=== PATIENT | male | born 1955 | race Two or more races ===

== ENCOUNTER → 2016-11-18 | Outpatient (CLI) | payer OTHER ==
[~2016-11-18] MED LIST: AMMONIUM LACTATE; DOCUSATE SODIU100 MG PO; FLUOXETINE HCL40 M1 PO; HYDROCODON-ACE1 EAC9 PO; NO MEDICATIONS; PRAVACHOL20 MG PO; PROZAC10 M1 PO; [UNRECOGNIZED DRUG - OTHER]; [UNRECOGNIZED DRUG - OTHER] PO
--- NOTE | ~2016-11-18 | EKG ---
PATIENT: GLADIS BILLINGSLEY UNIT #: [id number] Ventricular Rate: 60 BPM Atrial Rate: 60 BPM P-R Interval: 184 ms QRS Duration: 98 ms Q-T Interval: 430 ms QTC Calculation(Bezet): 430 ms P Browning: 47 degrees Calculated R Browning: -26 degrees Calculated T Browning: 9 degrees Diagnosis Line: Normal sinus rhythm Diagnosis Line: Minimal voltage criteria for LVH, may be normal Diagnosis Line: variant Diagnosis Line: Otherwise normal ECG Diagnosis Line: Diagnosis Line: Confirmed by PB KURTZ MD ([id number]) on 11/18/2016 Diagnosis Line: 11:06:43 PM INTERPRETING MD: JERARDO WEIR
[2016-11-18 14:42] LABS: HEMOGLOBIN 14.2 gm/dL (13.0-16.0); MEAN CELL VOLUME 93.5 FL (83-96); MEAN CORPUSCULAR HEMOGLOBIN 31.6 PG (28-34); MEAN CORPUSCULAR HGB CONC 33.8 g/dL (30-36); MEAN PLATELET VOLUME 8.5 FL (6.5-11.5); RED BLOOD COUNT 4.49 X10e (3.90-5.60); RED CELL DISTRIBUTION WIDTH 13.9 % (11.0-15.5); WHITE BLOOD COUNT 8.3 X10e3 (4.0-10.5)
[2016-11-18 15:13] LABS: CALCIUM SERUM 9.1 mg/dL (8.4-10.2); CREATININE SERUM 1.1 mg/dL (0.6-1.4); GLOM FILT RATE Estimated 71.6 mL/min (>60); POTASSIUM 4.4 mmol/L (3.5-5.1)
== END | disposition home or self-care (01) ==
LOC: CAMB 13:19
PROVIDERS: Urology
DX: Z01.818 Encounter for other preprocedural examination (principal); N28.89 Other specified disorders of kidney and ureter
CPT/HCPCS: 36415; 80048; 85027; 86850; 86860; 86870; 86880; 86885; 86900; 86901; 86905; 86970; 93005

== ENCOUNTER 2016-11-25 10:18 | Inpatient (IN) | payer OTHER ==
--- NOTE | ~2016-11-25 | CO ---
Unit #: [id number] #: [id number] Patient: ROBERTH BILLINGSLEY [id number] [address] [address] [id number] I MR#: [id number] NAME: ROBERTH BILLINGSLEY ROOM: 568 Age: 61 Sex: M Admission Date: 11/25/2016 : 1955 Attending Physician: Adi Linder M.D. Primary Care Physician: Caroline Reyes Aprn Requesting Physician: Adi Linder M.D. Consultation Date: 11/28/2016 CONSULTATION REPORT REASON FOR CONSULTATION Probable lymphoma, please evaluate. HISTORY OF PRESENT ILLNESS Mr. Roberth Mcdonnell is 61 years old with a history of chronic dermatitis with hyperkeratosis of his palms and soles, who was admitted to the hospital in August 14, 2016, with abdominal pain. A CT scan of the abdomen and pelvis revealed a mass arising from his right kidney, exophytic in the upper pole, measuring 2.3 x 2.9 x 2.4 cm. He has since had a right partial nephrectomy with pathology using a lymphoproliferative problem, possibly a follicular lymphoma leading to consultation. Mr. Kelly tells me he has had no changes in appetite or weight, no fevers. He has had some night sweats, primarily after his hospitalization. No itching. He has a history of chronic dermatitis affecting his hands and feet which was recently improved but no significant medical problems. PAST MEDICAL HISTORY Chronic dermatitis as mentioned. PAST SURGERIES 1. Knee surgery. 2. Partial nephrectomy. ALLERGIES Penicillin. FAMILY HISTORY Negative for cancer. SOCIAL HISTORY Used to drink alcohol (1) in the past but none recently. Smokes about a pack a day. He has had a lung screening CT scan which was negative. REVIEW OF SYSTEMS 14-point review of systems was done and information obtained by the help of his niece who is a fluent Latvian speaker. CONSTITUTIONAL: As discussed. EYES: Negative. EARS, NOSE, MOUTH AND THROAT: Negative. CARDIOVASCULAR: Negative. RESPIRATORY: Negative. GASTROINTESTINAL: Colon polyp. GENITOURINARY: Negative. Unit #: [id number] #: [id number] Patient: ROBERTH BILLINGSLEY NEUROLOGIC: Negative. ALLERGIC/LYMPHATIC: Negative. SKIN: Dermatosis of both hands as previously mentioned. PSYCHIATRIC: Negative. PHYSICAL EXAMINATION GENERAL: He is a pleasant, middle aged man, awake, alert, oriented x3. He is sitting up in a wheelchair. Awake, alert, oriented x3. VITAL SIGNS: Temperature is 98.3, pulse is 85, respiratory rate is 22, blood pressure is 139/88. O2 sats 94% on room air. HEENT: Pupils equal, react well to light. No pallor or icterus. Mucous membranes are moist. NECK: No JVD or thyromegaly. CARDIOVASCULAR SYSTEM: First and second heart sounds are heard without any murmurs, gallops, rubs. LUNGS: Chest expansion is symmetric, bilaterally clear. Normal breath sounds. ABDOMEN: Soft, nontender. (2) noted. No organomegaly. EXTREMITIES: Warm with good pulses. No edema, cyanosis or clubbing. NEUROLOGICAL: He is awake, alert, oriented x2 without any focal deficits. LYMPHATIC: No palpable lymph nodes. SKIN: Hyperkeratosis of both hands and soles of feet. DIAGNOSTIC STUDIES LABORATORY: CBC with white count of 8.4, hemoglobin 10.5, platelet count 149,000. Basic metabolic panel shows a BUN of 21, creatinine 1.7, eGFR is 42.3. Pathology was discussed with Dr. Royal of pathology and suspicious for a follicular lymphoma. ASSESSMENT AND PLAN Mr. Roberth Mcdonnell is 61 years old with a history of chronic dermatitis of his hands and feet with presence of abdominal pain in July 2016 with a right renal mass. After partial nephrectomy, the mass appears to be a lymphoma with final classification pending extradepartmental review with hemopathology. I discussed the situation with Mr. Kelly along with his niece and other family members. Will await a discharge home followed by a PET CT scan, final disease classification and likely bone marrow aspiration biopsy to be done as an outpatient following which additional recommendations. Thank you for letting me participate in his care. Dictated by.Genet. Byron Gilman M.D. ARETHA/perez TD: 11/28/2016 12:27 JOB #: [id number] Unit #: [id number] #: [id number] Patient: ROBERTH BILLINGSLEY CONSULTATION REPORT Page 1 of 1 X Byron Gilman MD CONSULTATION REPORT
--- NOTE | ~2016-11-25 | CO ---
Unit #: [id number] #: [id number] Patient: GLADIS BILLINGSLEY [id number] [address] [address] [id number] I MR#: [id number] NAME: GLADIS BILLINGSLEY ROOM: 568 Age: 61 Sex: M Admission Date: 11/25/2016 : 1955 Attending Physician: Adi Linder M.D. Primary Care Physician: Caroline Reyes Aprn Consultation Date: 11/26/2016 CONSULTATION REPORT REASON FOR CONSULTATION Critical care management. CHIEF COMPLAINT AND HISTORY OF PRESENT ILLNESS This patient basically is a 61-year-old male who has a past medical history of likely COPD, active smoker. Underwent a right-sided nephrectomy for right renal mass and is currently on Oxymizer. Denies any headache, blurry vision. No chest pain. No shortness of breath. REVIEW OF SYSTEMS Positive pallor. No edema. No cyanosis. No jaundice. The rest of a 12-point review of systems has been reviewed and is negative. PAST MEDICAL HISTORY 1. Likely COPD. 2. Status post nephrectomy. 3. History of knee surgery. ALLERGIES Penicillin. SOCIAL HISTORY Active smoker of 1 pack per day. Occasional alcohol use. MEDICATIONS As per OCT. Has been reviewed. PHYSICAL EXAMINATION VITAL SIGNS: Temperature 98, pulse 67, respirations 12, blood pressure 110/70. NEUROLOGIC: Awake, alert and oriented. No neuro deficits. HEENT: PERRLA. EOMI. NECK: Supple. No JVD. CHEST: Bilateral air entry. Bilateral mild rhonchi. GI: Nontender. Soft. Bowel sounds are positive. EXTREMITIES: No edema. SKIN: No rashes, no ulcer. LYMPHATIC: No lymphadenopathy. ASSESSMENT 1. Status post nephrectomy. 2. COPD. 3. Postop pain. 4. Hyperkalemia. Unit #: [id number] #: [id number] Patient: GLADIS BILLINGSLEY 5. Acute kidney injury. PLAN Continue oxygen. Continue bronchodilator. IV fluids as per nephrology. Follow pathology report. Smoking cessation. Patient will be closely monitored. Please see orders for detailed plan. Dictated by... Angelia Cantu M.D. Roby TD: 11/28/2016 13:17 JOB #: [id number] CONSULTATION REPORT Page 1 of 1 X Angelia Cantu MD CONSULTATION REPORT
--- NOTE | ~2016-11-25 | CR72 ---
[facility] A Service of [facility] & [facility] RADIOLOGY TEXT RESULTS PATIENT: GLADIS BILLINGSLEY LOCATION: [facility] [id number] : [birth year] UNIT #: [id number] AGE: [address]: Adi Linder MD SEX: M ORDER DR: [id number] [facility] [address] [place], [place] [address] [id number] I MR#: [id number] Acc #: [id number] NAME: GLADIS BILLINGSLEY : 1955 SEX: M STUDY DATE/TIME: 11/27/2016 14:02 UNIT: [facility] ROOM: [facility] STUDY DESCRIPTION: CR Chest Single View Portable Attending Physician: Adi Linder M.D. Ordering Physician: Angelia Cantu M.D. Primary Care Physician: Caroline Reyes Aprn MEDICAL IMAGING REPORT This report is preliminary unless electronic signature is present EXAM Portable chest INDICATIONS Shortness of breath today. COMPARISON Compared with 07/27/2015 FINDINGS There is low inspiratory volume with bibasilar atelectasis. Heart size within normal limits for technique. Degenerative changes of the AC joints. IMPRESSION There is low inspiratory volume with bibasilar atelectasis Dictated by... Tyler Hammond M.D. THIS IS AN ELECTRONICALLY VERIFIED REPORT Tyler Hammond M.D. at 11/28/2016 8:58 AM JEFFREY/meera TD: 11/27/2016 15:39 JOB #: [id number] MEDICAL IMAGING REPORT Page 1 of 1 COPY
--- NOTE | ~2016-11-25 | OR ---
Unit #: [id number] #: [id number] Patient: GLADIS BILLINGSLEY [id number] [address] [address] [id number] I MR#: [id number] NAME: GLADIS BILLINGSLEY ROOM: Date of Procedure: 11/25/2016 Admission Date: 11/25/2016 Surgeon: Adi Linder M.D. : 1955 [employer]her(s): Cordelia Palacio CFA Attending Physician: Adi Linder M.D. Primary Care Physician: Caroline Reyes, Emil PROCEDURE OPERATIVE NOTE PREOPERATIVE DIAGNOSIS Right renal mass. POSTOPERATIVE DIAGNOSIS Right renal mass. PROCEDURE PERFORMED Right open partial nephrectomy. SURGEON Adi Linder M.D. NO EXPERIENCE Cordelia Palacio CFA. ANESTHESIA General. INDICATIONS FOR PROCEDURE Mr. Robin Mcdonnell is a pleasant 61-year-old male who incidentally discovered right upper pole renal mass which is enhancing. The risks, benefits and alternatives including bleeding, infection, damage to adjacent structures, need for further surgery, need for radical nephrectomy, urine leak, the possibility this does not represent malignancy, failure to cure, PE, CVA, OK and were all discussed with the patient. Informed consent was obtained. He wished to proceed. DESCRIPTION OF PROCEDURE The patient was taken to the operative suite and properly identified. After the application of satisfactory general anesthetic, the patient was placed in a supine position with his right flank bumped. His abdomen and flank were prepped and draped in the usual sterile fashion. I made a right subcostal incision. Bovie electrocauterization was used to carry this down through the fascial layers. The fascia was opened and then the peritoneum was sharply opened. A Bookwalter self-retaining retractor was placed. He had some adhesions along the liver which were first taken down. We then mobilized the right colon along the white line of Toldt. We identified the ureter, encircled this with vessel loops. We performed a Karol maneuver, mobilizing the duodenum and exposing the inferior vena cava. Bowels were retracted medially and the liver was retracted superiorly. We identified the renal hilum and dissected this free. We released the attachments of the adrenal gland to the upper pole of the Unit #: [id number] #: [id number] Patient: GLADIS BILLINGSLEY kidney and we completely mobilized the upper pole, the lateral portion and the lower pole of the kidney. At this point we opened Gerota fascia. We identified the mass on the right upper pole lateral portion of the kidney. The Mannitol was infused. The kidney was crossclamped. We excised the mass using Metzenbaum scissors. Despite the kidney being crossclamped there was some arterial bleeding from the resection area. This was controlled with 3-0 Vicryl interrupted [id number] sutures. I then placed 0 Vicryl horizontal mattress sutures deep to the incision. I then also buttressed it with 0 Vicryl interrupted sutures over cigarettes with Surgicel. Hemostasis was achieved. I used the argon on the edge of the kidney. The kidney was unclamped. Crossclamp time was approximately 30 minutes. It was iced for 10 minutes after crossclamping. I inspected the kidney for approximately 10 minutes after removing the crossclamp and there was no active bleeding. FloSeal was placed in the operative bed. The abdomen was inspected. There was no evidence of intraabdominal injury. We removed the Bookwalter. We turned our attention of closing. We placed a 10 mm flat CESAR drain out of the right lateral inferior portion of the incision. The fascia was closed in two layers. The deep layer was closed with a #1 Vicryl running suture. The superficial layer was closed with #1 Vicryl interrupted [id number] sutures. The wound was copiously irrigated. The skin was closed with quinn. The patient tolerated the procedure well without complications. Estimated blood loss was 1000 mL. He received one unit of blood and was receiving the second unit of blood at the time of dictation. He is stable with systolic blood pressures in the 120s at this point. He will be monitored closely in the recovery room and in the ICU as well. Dictated by... Adi Linder M.D. CHRISTEN/nia TD: 11/25/2016 17:10 JOB #: [id number] PROCEDURE OPERATIVE NOTE Page 1 of 1 X Adi Linder MD X PROCEDURE OPERATIVE NOTE
--- NOTE | ~2016-11-25 | DS ---
Unit #: [id number] #: [id number] Patient: GLADIS BILLINGSLEY [id number] [address] [place], [place] [address] [id number] I MR#: [id number] NAME: GLADIS BILLINGSLEY ROOM: 568 Age: 61 Sex: M Admission Date: 11/25/2016 : 1955 Discharge Date: 11/29/2016 Attending Physician: Adi Linder M.D. Primary Care Physician: Caroline Reyes, Sales Representative [employer] DISCHARGE SUMMARY PRIMARY DIAGNOSIS Left renal mass consistent with lymphoma. OTHER DIAGNOSIS Postoperative renal insufficiency. DISPOSITION Home. FOLLOWUP 1. Followup with Dr. Linder in 10 days for staple removal. 2. PET scan next Friday outpatient through Dr. Gilman's office. 3. Nephrology followup pending. DISCHARGE MEDICATIONS Same as admission medications plus: 1. Colace one twice daily for two weeks. 2. Hixson 7.5/325 #30 one to two every six hours as needed. Note: Admission medications include: 1. Fluoxetine. 2. Bio Electro propionate cream and ammonium lactate topically. HISTORY The patient in July was admitted with abdominal pain and hematochezia and at that time was noted to have an enhancing right renal mass. He presents for elective right partial nephrectomy by Dr. Linder. HOSPITAL COURSE The patient was taken to the operating room the day of surgery and the above procedure performed. Postoperatively, his recovery was notable early for an elevated potassium which triggered a nephrology consult and easily responded to Kayexalate. His creatinine is stable at 1.6 at time of discharge. He had difficulty cooperating with self-administered analgesia initially and had atelectasis which responded to aggressive pain control, ambulation, and incentive spirometry. He also had a drop in the hemoglobin on postoperative day two to 10, but this was thought largely dilutional and it remained stable with a discharge hemoglobin of 10.8. He had minimal Chris-Marquez drainage. When pathology returned consistent with lymphoma invasive of renal parenchyma, surgical margins, and perinephric fat, Dr. Gilman of oncology was consulted. On the morning of the day of discharge, the patient is eating, ambulating, passing gas with less pain and voiding well. His Chris-Marquez drain is removed. Discharge anticipated pending Dr. Vaughn nephrology visit. Unit #: [id number] #: [id number] Patient: GLADIS BILLINGSLEY Dictated by... Sebastian Saucedo/candace TD: 11/29/2016 09:50 JOB #: [id number] CC: Sebastian Medrano M.D. W. Andre Duff, M.D. Ann Christy Elliot-Gonzalez, Emil DISCHARGE SUMMARY Page 1 of 1 X Andrea Maguire MD X DISCHARGE SUMMARY
--- NOTE | ~2016-11-25 | CO ---
Unit #: [id number] #: [id number] Patient: GLADIS BILLINGSLEY [id number] [address] [place], [place] [address] [id number] I MR#: [id number] NAME: GLADIS BILLINGSLEY ROOM: CIC2 Age: 61 Sex: M Admission Date: 11/25/2016 : 1955 Attending Physician: Adi Linder M.D. Primary Care Physician: Caroline Reyes Aprn Consultation Date: 11/26/2016 CONSULTATION REPORT REASON FOR CONSULTATION Renal insufficiency and hyperkalemia. HISTORY OF PRESENT ILLNESS Thank you very much for having me see this patient in consultation. This gentleman is a 61-year-old gentleman who does not speak [place], who presented to the hospital after being found in July of 2016 to have a right renal mass. He underwent a right partial nephrectomy yesterday. Patient was noted preoperatively to have a potassium of 4.2, a BUN of 19, creatinine of 1.0 and this morning his creatinine was up to 1.4 with potassium of 5.6. Because of this I was asked to see the patient. Patient was given Kayexalate and IV calcium. Patient currently is alert. He is complaining mainly of some pain in his right side. He is not having any chest pain, shortness of breath, nausea or vomiting currently. PAST MEDICAL HISTORY 1. History of status post knee surgery. 2. History, of course, of open partial nephrectomy yesterday on the right. ALLERGIES Include penicillin. SOCIAL HISTORY Socially occasional alcohol, positive smoker. REVIEW OF SYSTEMS Apparently no headaches, dizziness, visual problems, no cough, no neck pain, no chest pain, no shortness of breath. He is having abdominal pain. No significant swelling. No recent seizures or strokes. CURRENT MEDICATIONS His medicines currently include IV Pepcid, naloxone, morphine, Zofran, Prozac and Levaquin. PHYSICAL EXAMINATION GENERAL: He is alert. VITAL SIGNS: Temperature is 98.3, pulse 69 to 85, blood pressure 113 to 148 over 62 to 100. His output was recorded at 645 since surgery although he does have a Watts in and he appears to have some good urine in the bag at this point. HEENT: His HEENT is normocephalic and atraumatic. Pupils are equal, round and reactive to light. Extraocular muscles are intact. Hearing Unit #: [id number] #: [id number] Patient: GLADIS BILLINGSLEY appears to be normal. Mouth is clear, no erythema, no exudate. NECK: Supple, no adenopathy. CARDIAC: Regular rate and rhythm, without a rub, no S3 or S4. LUNGS: Clear bilaterally. No wheezes, rhonchi or rales. ABDOMEN: Bowel sounds are positive. He has a drain in his right side. Mild tenderness. The wounds are bandaged. EXTREMITIES: He has no lower extremity swelling. His pulses are intact in upper and lower extremities. JOINTS: No joint pain or joint swelling. SKIN: No rash. NEUROLOGIC: Appears intact motor and sensory grossly. GENITOURINARY: Has a Watts catheter in place. DIAGNOSTIC STUDIES LABORATORY: Data shows sodium of 138, potassium 5.6, chloride is 108, bicarb is 22, BUN and creatinine 22 and 1.4, with a glucose of 133, calcium is 7.9, hemoglobin is 14.3 and white count 15,800 and magnesium is 2, platelets 180,000. ASSESSMENT AND PLAN 1. Hyperkalemia: Patient with an increased potassium most likely related to surgery, mild acidosis, etc. Certainly will recheck a STAT BMP now and if it continues to be elevated will treat medically. 2. Renal insufficiency: Patient with acute increase in creatinine, a questionable decreased output. Agree with IV fluids for now. Will check UA, culture and sensitivity, urine eosinophils, random urine sodium. Depending on how his renal function does and his output does pending further workup and treatment. Certainly will avoid nonsteroidals, SALDIVAR-2 inhibitors, PPIs and other nephrotoxins if possible. 3. Status post open partial right nephrectomy on 11/25/16. Dictated by..Genet Vaughn M.D. SLY/nia TD: 11/26/2016 17:04 JOB #: [id number] CONSULTATION REPORT Page 1 of 1 X Azul Vaughn MD X CONSULTATION REPORT
[~2016-11-25 10:18] MED LIST changes: -DOCUSATE SODIU100 MG PO; -FLUOXETINE HCL40 M1 PO; -HYDROCODON-ACE1 EAC9 PO; -[UNRECOGNIZED DRUG - OTHER] PO
[2016-11-25] MEDS ORDERED: FLUOXETINE HCL40 M1 PO (10:45)
[2016-11-25] MEDS ORDERED: [UNRECOGNIZED DRUG - OTHER] PO (10:50)
[2016-11-25 13:12] LABS: ALBUMIN SERUM 3.8 g/dL (3.5-5.0); BILIRUBIN,TOTAL 0.7 mg/dL (0.2-2.0); CALCIUM SERUM 8.8 mg/dL (8.4-10.2); GLOM FILT RATE Estimated 80.3 mL/min (>60); POTASSIUM 4.2 mmol/L (3.5-5.1); PROTEIN TOTAL SERUM 7.3 g/dL (6.0-8.3)
[2016-11-25 17:31] LABS: BASOPHIL% 0.1 % (0-2.5); EOSINOPHIL# 0.5 X10e3 (0-0.7); EOSINOPHIL% 1.9 % (0.0-7.0); HEMATOCRIT 45.2 % (38.0-50.0); HEMOGLOBIN 14.6 gm/dL (13.0-16.0); LYMPHOCYTE# 2.7 X10e3 (1.0-3.5); LYMPHOCYTE% 10.3 % (17.0-45.0); MEAN CELL VOLUME 94.1 FL (83-96); MEAN CORPUSCULAR HEMOGLOBIN 30.3 PG (28-34); MEAN CORPUSCULAR HGB CONC 32.2 g/dL (30-36); MEAN PLATELET VOLUME 8.1 FL (6.5-11.5); MONOCYTE% 3.7 % (3.0-12.0); NEUTROPHIL# 21.8 X10e3 (1.5-7.1); PLATELET COUNT 191 X10e3 (140-420); RED CELL DISTRIBUTION WIDTH 14.1 % (11.0-15.5); WHITE BLOOD COUNT 25.9 X10e3 (4.0-10.5)
[2016-11-25 17:32] LABS: DIFF IND YES
[2016-11-25 17:53] LABS: CALCIUM SERUM 7.5 mg/dL (8.4-10.2); GLOM FILT RATE Estimated 80.3 mL/min (>60); MAGNESIUM 1.7 mg/dL (1.6-3.0)
[2016-11-25 18:06] LABS: BURR CELLS PRESENT; PLATELET ESTIMATE NORMAL (NORMAL)
[2016-11-25 21:09] LABS: EOSINOPHIL% 0.2 % (0.0-7.0); HEMATOCRIT 42.6 % (38.0-50.0); HEMOGLOBIN 14.2 gm/dL (13.0-16.0); LYMPHOCYTE# 1.3 X10e3 (1.0-3.5); LYMPHOCYTE% 5.4 % (17.0-45.0); MEAN CELL VOLUME 93.2 FL (83-96); MEAN CORPUSCULAR HGB CONC 33.3 g/dL (30-36); MEAN PLATELET VOLUME 8.2 FL (6.5-11.5); MONOCYTE# 1.1 X10e3 (0-1.0); MONOCYTE% 4.6 % (3.0-12.0); NEUTROPHIL# 21.4 X10e3 (1.5-7.1); NEUTROPHIL% 89.8 % (40-75); PLATELET COUNT 184 X10e3 (140-420); RED BLOOD COUNT 4.57 X10e (3.90-5.60); RED CELL DISTRIBUTION WIDTH 14.5 % (11.0-15.5); WHITE BLOOD COUNT 23.9 X10e3 (4.0-10.5)
[2016-11-25 21:10] LABS: DIFF IND NO
[2016-11-26 02:50] LABS: EOSINOPHIL% 0.1 % (0.0-7.0); HEMATOCRIT 43.2 % (38.0-50.0); HEMOGLOBIN 14.3 gm/dL (13.0-16.0); LYMPHOCYTE% 6.4 % (17.0-45.0); MEAN CELL VOLUME 93.7 FL (83-96); MEAN CORPUSCULAR HGB CONC 33.1 g/dL (30-36); MEAN PLATELET VOLUME 8.4 FL (6.5-11.5); MONOCYTE# 0.9 X10e3 (0-1.0); NEUTROPHIL# 13.8 X10e3 (1.5-7.1); NEUTROPHIL% 87.5 % (40-75); PLATELET COUNT 180 X10e3 (140-420); RED BLOOD COUNT 4.61 X10e (3.90-5.60); RED CELL DISTRIBUTION WIDTH 14.3 % (11.0-15.5); WHITE BLOOD COUNT 15.8 X10e3 (4.0-10.5)
[2016-11-26 02:51] LABS: DIFF IND NO
[2016-11-26 03:14] LABS: BUN/CREATININE RATIO 15.71; CALCIUM SERUM 7.9 mg/dL (8.4-10.2); CREATININE SERUM 1.4 mg/dL (0.6-1.4); GLOM FILT RATE Estimated 53.5 mL/min (>60)
[2016-11-26 03:16] LABS: POTASSIUM 5.6 mmol/L (3.5-5.1)
[2016-11-26 09:54] LABS: URINE APPEARANCE CLEAR; URINE BILIRUBIN NEG (NEG); URINE BLOOD 3+ (NEG); URINE COLOR YELLOW; URINE GLUCOSE NEG (NEG); URINE KETONE NEG (NEG); URINE LEUKOCYTE ESTERASE NEG (NEG); URINE NITRATE NEG (NEG); URINE PH 5.5 (5-8); URINE PROTEIN 1+ (NEG); URINE SPECIFIC GRAVITY 1.021 (1.003-1.035)
[2016-11-26 09:56] LABS: URBCS1 AUWI INNUM /[HPF] (0-2); URINE BACTERIA AUWI NEG (NEGATIVE); URINE SQUAMOUS EPITHELIAL CELL OCC /[HPF]
[2016-11-26 10:42] LABS: BUN/CREATININE RATIO 16.42; CALCIUM SERUM 7.9 mg/dL (8.4-10.2); CREATININE SERUM 1.4 mg/dL (0.6-1.4); GLOM FILT RATE Estimated 53.5 mL/min (>60); POTASSIUM 4.6 mmol/L (3.5-5.1)
[2016-11-27 07:19] LABS: ALBUMIN SERUM 2.6 g/dL (3.5-5.0); BILIRUBIN,TOTAL 0.8 mg/dL (0.2-2.0); BUN/CREATININE RATIO 12.66; CALCIUM SERUM 7.6 mg/dL (8.4-10.2); CREATININE SERUM 1.5 mg/dL (0.6-1.4); GLOM FILT RATE Estimated 49.2 mL/min (>60); MAGNESIUM 1.6 mg/dL (1.6-3.0); PHOSPHOROUS 2.6 mg/dL (2.5-4.6); PROTEIN TOTAL SERUM 4.8 g/dL (6.0-8.3)
[2016-11-27 07:32] LABS: BASOPHIL% 0.1 % (0-2.5); EOSINOPHIL# 0.4 X10e3 (0-0.7); EOSINOPHIL% 4.2 % (0.0-7.0); HEMATOCRIT 31.7 % (38.0-50.0); LYMPHOCYTE# 1.2 X10e3 (1.0-3.5); LYMPHOCYTE% 14.1 % (17.0-45.0); MEAN CORPUSCULAR HEMOGLOBIN 33.2 PG (28-34); MEAN CORPUSCULAR HGB CONC 34.2 g/dL (30-36); MEAN PLATELET VOLUME 8.7 FL (6.5-11.5); MONOCYTE# 0.6 X10e3 (0-1.0); MONOCYTE% 7.2 % (3.0-12.0); NEUTROPHIL# 6.5 X10e3 (1.5-7.1); NEUTROPHIL% 74.4 % (40-75); PLATELET COUNT 134 X10e3 (140-420); RED BLOOD COUNT 3.26 X10e (3.90-5.60); RED CELL DISTRIBUTION WIDTH 14.2 % (11.0-15.5); WHITE BLOOD COUNT 8.8 X10e3 (4.0-10.5)
[2016-11-27 07:40] LABS: HEMOGLOBIN 10.8 gm/dL (13.0-16.0)
[2016-11-27 07:41] LABS: DIFF IND NO
[2016-11-27 11:13] LABS: HEMATOCRIT 32.5 % (38.0-50.0)
[2016-11-27 17:10] LABS: HEMATOCRIT 31.7 % (38.0-50.0); HEMOGLOBIN 10.6 gm/dL (13.0-16.0)
[2016-11-28 06:13] LABS: HEMATOCRIT 30.8 % (38.0-50.0); HEMOGLOBIN 10.5 gm/dL (13.0-16.0); MEAN CORPUSCULAR HEMOGLOBIN 31.5 PG (28-34); MEAN CORPUSCULAR HGB CONC 34.3 g/dL (30-36); RED BLOOD COUNT 3.35 X10e (3.90-5.60); RED CELL DISTRIBUTION WIDTH 13.9 % (11.0-15.5); WHITE BLOOD COUNT 8.4 X10e3 (4.0-10.5)
[2016-11-28 06:37] LABS: MEAN CELL VOLUME 91.9 FL (83-96)
[2016-11-28 06:39] LABS: BUN/CREATININE RATIO 12.35; CALCIUM SERUM 7.7 mg/dL (8.4-10.2); CREATININE SERUM 1.7 mg/dL (0.6-1.4); GLOM FILT RATE Estimated 42.3 mL/min (>60); MAGNESIUM 2.1 mg/dL (1.6-3.0); PHOSPHOROUS 3.6 mg/dL (2.5-4.6); POTASSIUM 3.5 mmol/L (3.5-5.1)
[2016-11-29 05:56] LABS: HEMATOCRIT 32.3 % (38.0-50.0); HEMOGLOBIN 10.8 gm/dL (13.0-16.0); MEAN CELL VOLUME 94.4 FL (83-96); MEAN CORPUSCULAR HEMOGLOBIN 31.7 PG (28-34); MEAN CORPUSCULAR HGB CONC 33.5 g/dL (30-36); MEAN PLATELET VOLUME 8.9 FL (6.5-11.5); RED BLOOD COUNT 3.42 X10e (3.90-5.60); RED CELL DISTRIBUTION WIDTH 13.6 % (11.0-15.5); WHITE BLOOD COUNT 7.3 X10e3 (4.0-10.5)
[2016-11-29 06:34] LABS: BUN/CREATININE RATIO 11.87; CALCIUM SERUM 8.2 mg/dL (8.4-10.2); CREATININE SERUM 1.6 mg/dL (0.6-1.4); GLOM FILT RATE Estimated 45.5 mL/min (>60); POTASSIUM 3.7 mmol/L (3.5-5.1)
[2016-11-29] MEDS ORDERED: HYDROCODON-ACE1 EAC9 PO (17:26)
[2016-11-29] MEDS ORDERED: DOCUSATE SODIU100 MG PO (17:26)
[2016-12-18] MEDS ORDERED: NO MEDICATIONS (06:59)
== END 2016-11-29 18:23 | disposition home or self-care (01) | DRG 820 ==
LOC: CSUR 10:18 → CPACUOF 16:50 → CICCU2 20:03 → C5C 11-26 20:01
PROVIDERS: Internal Medicine Nephrology; Urology
PROC: 04Q Lower Arteries, Repair (ICD-10-PCS; 2016-11-25)
PROC: 30233N1 Transfusion of Nonautologous Red Blood Cells into Peripheral Vein, Percutaneous Approach (ICD-10-PCS; 2016-11-25)
PROC: 0TB00ZZ Excision of Right Kidney, Open Approach (ICD-10-PCS; principal; 2016-11-25 13:30)
DX: C85.89 Other specified types of non-Hodgkin lymphoma, extranodal and solid organ sites (principal); N17.0 Acute kidney failure with tubular necrosis; J98.11 Atelectasis; K21.9 Gastro-esophageal reflux disease without esophagitis; J44.9 Chronic obstructive pulmonary disease, unspecified; F17.210 Nicotine dependence, cigarettes, uncomplicated; Z88.0 Allergy status to penicillin; E87.5 Hyperkalemia
CPT/HCPCS: 71010; 80048; 80053; 81003; 82947; 83735; 84100; 84300; 85014; 85018; 85025; 85027; 86850; 86900; 86901; 86922; 87086; 88305; 88307; 88331; 89190; 94010; 94640; 94664; 94760; 97110; 97116; 97161; 97535; J0330; J0610; J0885; J1650; J1885; J1940; J1956; J2150; J2270; J2370; J2405; J2710; J3010; J3475; P9016

== ENCOUNTER 2016-12-16 10:13 | Emergency (ER) | payer OTHER ==
[~2016-12-16 10:13] MED LIST changes: +DOCUSATE SODIU100 MG PO; +FLUOXETINE HCL40 M1 PO; +HYDROCODON-ACE1 EAC9 PO; +[UNRECOGNIZED DRUG - OTHER] PO
[2016-12-18] MEDS ORDERED: NO MEDICATIONS (06:59)
== END 2016-12-16 10:20 | disposition home or self-care (01) ==
LOC: CED 10:13
DX: Z48.01 Encounter for change or removal of surgical wound dressing (principal); Z88.0 Allergy status to penicillin; F17.200 Nicotine dependence, unspecified, uncomplicated
CPT/HCPCS: 99281

== ENCOUNTER → 2016-12-18 | Outpatient (CLI) | payer OTHER ==
--- NOTE | ~2016-12-18 | XA51 ---
[facility] A Service of [facility] RADIOLOGY TEXT RESULTS PATIENT: GLADIS BILLINGSLEY LOCATION: [facility] : 53 UNIT #: [id number] AGE: [address]: Byron Gilman MD SEX: M ORDER DR: [id number] [address] [address] [id number] MR#: [id number] Acc #: [id number] NAME: GLADIS BILLINGSLEY : 1955 SEX: M STUDY DATE/TIME: 12/18/2016 7:42 UNIT: [facility] ROOM: STUDY DESCRIPTION: XA BX Bone Marrow Attending Physician: Byron Gilman M.D. Ordering Physician: Byron Gilman M.D. Primary Care Physician: Primary Care Physician No MEDICAL IMAGING REPORT This report is preliminary unless electronic signature is present EXAM Bone marrow aspiration and biopsy HISTORY Renal cell carcinoma. Lymphoma. Anemia. TECHNIQUE The procedure was explained to the patient including risks, benefits and complications. A business administration professor was used. The procedure was performed with conscious sedation with the patient lying prone under fluoroscopic guidance. Using sterile technique and following local anesthesia with 1% Xylocaine, a bone biopsy needle was placed in the right iliac crest under fluoroscopic guidance. Bone marrow aspiration was then performed with the aspirate deposited in 4 appropriately labeled and colored test tubes. Following this, a core biopsy was obtained. The patient tolerated the procedure well. Total fluoroscopy time 0.5 minutes with a total dose of 15 mGy. IMPRESSION Successful bone marrow aspiration and biopsy with conscious sedation and fluoroscopic guidance. Dictated by... Andrea Duncan M.D. THIS IS AN ELECTRONICALLY VERIFIED REPORT Andrea Duncan M.D. at 12/18/2016 4:44 PM RALPH/tom TD: 12/18/2016 12:04 [facility] A Service of [facility] RADIOLOGY TEXT RESULTS PATIENT: GLADIS BILLINGSLEY LOCATION: [facility] : 53 UNIT #: [id number] AGE: [address]: Byron Gilman MD SEX: M ORDER DR: JOB #: [id number] MEDICAL IMAGING REPORT Page 1 of 1 COPY
[2016-12-18 06:46] LABS: HEMATOCRIT 34.6 % (38.0-50.0); HEMOGLOBIN 11.6 gm/dL (13.0-16.0); MEAN CELL VOLUME 90.9 FL (83-96); MEAN CORPUSCULAR HEMOGLOBIN 30.5 PG (28-34); MEAN CORPUSCULAR HGB CONC 33.5 g/dL (30-36); MEAN PLATELET VOLUME 7.6 FL (6.5-11.5); RED BLOOD COUNT 3.8 X10e (3.90-5.60); RED CELL DISTRIBUTION WIDTH 13.7 % (11.0-15.5); WHITE BLOOD COUNT 6.5 X10e3 (4.0-10.5)
[2016-12-18 07:12] LABS: PARTIAL THROMBOPLASTIN TIME 35.7 SECONDS (23.5-31.3); PROTHROMBIN TIME (PATIENT) 10.2 SECONDS (9.6-11.5)
== END | disposition home or self-care (01) ==
LOC: CIVR 06:14
PROVIDERS: Internal Medicine Hematology & Oncology
DX: C82.99 Follicular lymphoma, unspecified, extranodal and solid organ sites (principal); C64.9 Malignant neoplasm of unspecified kidney, except renal pelvis; Z90.5 Acquired absence of kidney; Z88.0 Allergy status to penicillin; F17.200 Nicotine dependence, unspecified, uncomplicated
CPT/HCPCS: 38221; G0364; 36415; 77002; 85027; 85610; 85730; 88305; 88311; 88313; 99144; 99152; 99153; J2250; J3010